=== PATIENT | female | born 1975 | race Caucasian/White ===

== ENCOUNTER → 2025-01-17 07:45 | Outpatient (REF) | payer OTHER, SELFPAY | LOC: HWRAD 07:45 | PROVIDERS: ATTENDING PHYSICIAN Otolaryngology; FAMILY PHYSICIAN Physician Assistant | DX: E04.0 Nontoxic diffuse goiter (principal) | CPT/HCPCS: 76536 ==

== ENCOUNTER 2025-01-31 06:23 | Day surgery (SDC) | payer OTHER, SELFPAY | END 2025-01-31 09:03 | disposition home or self-care (01) | LOC: GI 06:23 | PROVIDERS: ATTENDING PHYSICIAN Internal Medicine | DX: Z12.11 Encounter for screening for malignant neoplasm of colon (principal); K57.30 Diverticulosis of large intestine without perforation or abscess without bleeding; K64.4 Residual hemorrhoidal skin tags; K62.89 Other specified diseases of anus and rectum; Z83.710 Family history of adenomatous and serrated polyps; Z80.0 Family history of malignant neoplasm of digestive organs | CPT/HCPCS: G0105 ==

== ENCOUNTER → 2025-02-05 08:04 | Outpatient (REF) | payer OTHER, SELFPAY | LOC: HWWDC 08:04 | PROVIDERS: ATTENDING PHYSICIAN Physician Assistant | DX: Z12.31 Encounter for screening mammogram for malignant neoplasm of breast (principal) | CPT/HCPCS: 77063; 77067 ==